=== PATIENT | female | born 1985 | race Caucasian/White ===

== ENCOUNTER 2017-03-20 21:21 | Emergency (ER) | payer OTHER ==
[~2017-03-20] VITALS: Ht 170.2 cm; Wt 65.0 kg
[2017-03-20 21:23] VITALS: BP 127/68; PULSE 68; RESP 16; TEMP 98.1; O2SAT 100
--- NOTE | 2017-03-20 22:12 | PD ---
HPI Chief Complaint: GI Complaint Time Seen by Provider: 22:07 Travel History International Travel<30 days: No Contact w/Intl Traveler<30days: No Traveled to known affect area: No History of Present Illness HPI 32-year-old female presents to the emergency department for complaint of 8/10 epigastric pain. Patient states pain is worsened by palpation and reproducible. Patient denies previous history of abdominal pain. She denies history of gastritis peptic ulcer disease pancreatitis gallstones or biliary colic. Patient denies chest pain or shortness of breath. Patient states pain does radiate into her back. Patient unable to identify exacerbating or alleviating factors. Patient states she felt well when she went to bed last evening and awakened with pain. Patient's had no fever or chills. Patient has had nausea with some bilious emesis but no hematemesis or coffee-ground emesis. Patient denies dysuria frequency or urgency. Patient denies diarrhea or constipation. Last menstrual period was normal for her and denies . Patient has history of endometriosis with previous laparoscopy as well as C- section breast augmentation and prior ectopic . Patient denies any lower abdominal pain. Patient is taking no medication for symptom relief. [facility] Past Medical History Narrative Medical Endometriosis, ectopic , laparoscopy, , breast augmentation; occasional alcohol use, marijuana use, tobacco use; nursing notes reviewed Diminished Hearing: No Medical other: Yes (breast augmentation, pre-eclampsia) Immunizations Current: Yes ?: Not Past Surgical History Section: Yes Gynecologic Surgery: Yes ( endometriosis) Social History Alcohol Use: Yes (occassional) Tobacco Use: Yes (1ppd) Substance Use: Yes (marijuana) Allergies-Medications (Allergen,Severity, Reaction): Coded Allergies: No Known Allergies (Unverified , 03/20/17) Reported Meds & Prescriptions Reported Meds & Active Scripts Active No Active Prescriptions or Reported Medications Review of Systems Except as stated in HPI: all other systems reviewed are Neg General / Constitutional: No: Fever, Chills HENT: No: Congestion Cardiovascular: No: Chest Pain or Discomfort Respiratory: No: Cough Gastrointestinal: Positive: Nausea, Vomiting, Abdominal Pain Genitourinary: No: Flank Pain Musculoskeletal: No: Myalgias, Arthralgias Skin: No Rash Neurologic: No: Weakness Psychiatric: No: Anxiety Hematologic/Lymphatic: No: Lymph Node Enlargement Physical Exam Narrative GENERAL: Well-developed well-nourished female in no acute distress no respiratory distress SKIN: Warm and dry. HEAD: Normocephalic. EYES: No scleral icterus. No injection or drainage. NECK: Supple, trachea midline. No JVD or lymphadenopathy. CARDIOVASCULAR: Regular rate and rhythm without murmurs, gallops, or rubs. RESPIRATORY: Breath sounds equal bilaterally. No accessory muscle use. GASTROINTESTINAL: Abdomen soft, reproducible epigastric pain with mild bilateral upper quadrant tenderness to direct palpation without guarding or rebound, nondistended. MUSCULOSKELETAL: No cyanosis, or edema. BACK: Nontender without obvious deformity. No CVA tenderness. Data Data Last Documented VS Vital Signs Date Time Temp Pulse Resp B/P Pulse Ox O2 Delivery O2 Flow Rate FiO2 03/20/17 21:23 98.1 68 16 127/68 100 Orders Complete Blood Count With Diff (03/20/17 22:07) Comprehensive Metabolic Panel (03/20/17 22:07) Lipase (03/20/17 22:07) Urinalysis - C+S If Indicated (03/20/17 22:07) Iv Access Insert/Monitor (03/20/17 22:07) Ecg Monitoring (03/20/17 22:07) Oximetry (03/20/17 22:07) Ondansetron Inj (Zofran Inj) (03/20/17 22:15) Pantoprazole Inj (Protonix Inj) (03/20/17 22:15) Sodium Chloride 0.9% Flush (Ns Flush) (03/20/17 22:15) Ed Urine Pregnancytest Poc (03/20/17 22:07) Sodium Chlor 0.9% 1000 Ml Inj (Ns 1000 M (03/20/17 22:15) Ct Abd/Pel W Iv Contrast(Rout) (03/20/17 ) Hydromorphone Pf Inj (Dilaudid Pf Inj) (03/20/17 23:45) Urine Culture (03/20/17 23:59) Iohexol 350 Inj (Omnipaque 350 Inj) (03/21/17 00:15) Labs Laboratory Tests Test 03/20/17 03/20/17 22:20 23:59 Sodium Level 139 MEQ/L Potassium Level 4.2 MEQ/L Chloride Level 102 MEQ/L Carbon Dioxide Level 28.1 MEQ/L Anion Gap 9 MEQ/L Blood Urea Nitrogen 11 MG/DL Creatinine 0.70 MG/DL Estimat Glomerular Filtration 96 ML/MIN Rate Random Glucose 72 MG/DL Calcium Level 9.4 MG/DL Total Bilirubin 0.6 MG/DL Aspartate Amino Transf 38 U/L (AST/SGOT) Alanine Aminotransferase 20 U/L (ALT/SGPT) Alkaline Phosphatase 77 U/L Total Protein 7.7 GM/DL Albumin 4.1 GM/DL Lipase 136 U/L White Blood Count 14.2 TH/MM3 Red Blood Count 5.20 MIL/MM3 Hemoglobin 15.6 GM/DL Hematocrit 46.8 % Mean Corpuscular Volume 90.0 FL Mean Corpuscular Hemoglobin 30.1 PG Mean Corpuscular Hemoglobin 33.4 % Concent Red Cell Distribution Width 12.7 % Platelet Count 265 TH/MM3 Mean Platelet Volume 8.8 FL Neutrophils (%) (Auto) 74.7 % Lymphocytes (%) (Auto) 18.9 % Monocytes (%) (Auto) 4.8 % Eosinophils (%) (Auto) 1.3 % Basophils (%) (Auto) 0.3 % Neutrophils # (Auto) 10.6 TH/MM3 Lymphocytes # (Auto) 2.7 TH/MM3 Monocytes # (Auto) 0.7 TH/MM3 Eosinophils # (Auto) 0.2 TH/MM3 Basophils # (Auto) 0.0 TH/MM3 CBC Comment DIFF FINAL Differential Comment Urine Color YELLOW Urine Turbidity HAZY Urine pH 6.5 Urine Specific [place] 1.032 Urine Protein 100 mg/dL Urine Glucose (UA) NEG mg/dL Urine Ketones 150 mg/dL Urine Occult Blood TRACE Urine Nitrite NEG Urine Bilirubin NEG Urine Urobilinogen 4.0 MG/DL Urine Leukocyte Esterase MOD Urine RBC 5 /hpf Urine WBC 19 /hpf Urine Squamous Epithelial 12 /hpf Cells Urine Mucus MANY /lpf Microscopic Urinalysis Comment CULTURE INDICATED MDM Medical Decision Making Medical Screen Exam Complete: Yes Emergency Medical Condition: Yes Medical Record Reviewed: Yes Interpretation(s) CBC & BMP Diagram 03/20/17 22:20 Vital Signs Date Time Temp Pulse Resp B/P Pulse Ox O2 Delivery O2 Flow Rate FiO2 03/20/17 21:23 98.1 68 16 127/[address] abd/pel: CONCLUSION: 1. Bilateral ovarian cysts. 2. Tiny 4 mm left hepatic cyst. 3. Otherwise, unremarkable examination for patient's age. Mark Linares MD on March 21, 2017 at 0:30 Board Certified Radiologist. This report was verified electronically. [id number] hCG: Negative Urinalysis: positive for leukocyte esterase and white blood cells; culture indicated Differential Diagnosis Gastritis peptic ulcer disease biliary colic pancreatitis viral syndrome; also to consider atypical chest pain Narrative Course IV access obtained specimens collected and sent for resulting patient administered Zofran 4 mg IV normal saline bolus and Protonix 40 mg IV Patient continues to complain of pain is identified to have leukocytosis of 14, 500 CT abdomen and pelvis ordered patient given dose of Dilaudid 0.5 mg IV Patient remains comfortable CT abdomen and pelvis reveals no acute intra- abdominal or pelvic abnormality other than noted to have ovarian cyst; urinalysis is abnormal with white cells and leukocytosis with culture indicated patient given oral dose of antibiotic. At 12:40 AM patient is stable for outpatient management and follow-up with her primary care provider. Patient feels well, pain resolved. Patient informed of lab results and encouraged to return to the emergency for for any concerns Diagnosis Primary Impression: Gastritis Additional Impressions: Ovarian cyst UTI (urinary tract infection) Referrals: Primary Care Physician call for appointment Patient Instructions: General Instructions Additional Instructions: Take medications as prescribed Follow-up with primary care provider Return to the emergency department for any concerns or change in condition Increase fluid hydration Recommend clear liquid diet for next 12-24 hours advance as tolerated bland/ Daina diet and regular diet Take acetaminophen as needed for fever 100.4F or greater; avoid use of ibuprofen/Advil/Motrin Med/Other Pt SpecificInfo: Prescription(s) given Scripts Ondansetron Odt (Zofran Odt)4 Mg Tab4 Mg SL Q6HR PRN (Nausea/Vomiting) #10 TAB Ref 0 Prov:Zabrina Gibson MD 03/21/17 Pantoprazole (Protonix)40 Mg Tab40 Mg PO DAILY #15 TAB Ref 0 Prov:Zabrina Gibson MD 03/21/17 Nitrofurantoin Monohydrate Macrocrystals (Macrobid)100 Mg Utk248 Mg PO BID #14 CAP Ref 0 Prov:Zabrina Gibson MD 03/21/17 Disposition: 01 DISCHARGE HOME Condition: Stable Zabrina Gibson MD March 20, 2017 22:11
[2017-03-20] MEDS ORDERED: SODIUM CHLOR 0.9% 1000 ML INJ 1,000 ML IV ONE (22:15)
[2017-03-20] MEDS ORDERED: SODIUM CHLORIDE 0.9% FLUSH 10 ML FLUSH IV FLUSH PRN (22:15)
[2017-03-20] MEDS ORDERED: ONDANSETRON HCL 4 MG/2 ML VIAL IVP ONE (22:15)
[2017-03-20] MEDS ORDERED: PANTOPRAZOLE SODIUM 40 MG VIAL IVP ONE (22:15)
[2017-03-20 22:33] LABS: AUTOMATED NEUTROPHIL # 10.6 TH/MM3 (1.8-7.7); BASOPHIL % 0.3 % (0.0-2.0); EOSINOPHIL # 0.2 TH/MM3 (0-0.4); EOSINOPHIL % 1.3 % (0.0-4.0); HEMATOCRIT 46.8 % (35.0-46.0); HEMO FLAGS DIFF FINAL; LYMPH % 18.9 % (9.0-44.0); LYMPHOCYTE # 2.7 TH/MM3 (1.0-4.8); MEAN CORPUSCULAR HEMOGLOBIN 30.1 PG (27.0-34.0); MEAN CORPUSCULAR HGB CONC 33.4 % (32.0-36.0); MONO % 4.8 % (0.0-8.0); NEUT % 74.7 % (16.0-70.0); PLATELET COUNT 265 TH/MM3 (150-450); RED CELL DISTRIBUTION WIDTH 12.7 % (11.6-17.2); WHITE BLOOD COUNT 14.2 TH/MM3 (4.0-11.0)
[2017-03-20 23:17] LABS: ALT (GPT) 20 U/L (10-53); ANION GAP 9 MEQ/L (5-15); AST (GOT) 38 U/L (15-37); BICARBONATE 28.1 MEQ/L (21.0-32.0); BLOOD UREA NITROGEN 11 MG/DL (7-18); CHLORIDE 102 MEQ/L (98-107); GLOMERULAR FILTRATION RATE 96 ML/MIN (>89); SODIUM (NA) 139 MEQ/L (136-145)
[2017-03-20 23:18] LABS: ALKALINE PHOSPHATASE 77 U/L (45-117); POTASSIUM 4.2 MEQ/L (3.5-5.1); TOTAL BILIRUBIN ADULT 0.6 MG/DL (0.2-1.0)
[2017-03-20] MEDS ORDERED: HYDROmorphone HCL PF 1 MG/ML VIAL IV PUSH ONE (23:45)
[2017-03-21 00:09] LABS: BLOOD, URINE TRACE (NEG); COMMENT (UR) CULTURE INDICATED; CULTURE IF INDICATED CULTURE INDICATED; GLUCOSE,URINE NEG (NEG); KETONE, URINE 150 mg/dL (NEG); MUCUS URINE MANY /lpf (OCC); NITRITE,URINE NEG (NEG); PH, URINE 6.5 (5.0-8.5); SQUAMOUS EPITHELIAL CELL URINE 12 /hpf (0-5); URINE COLOR YELLOW (YELLW/STRAW)
[2017-03-21] MEDS ORDERED: IOHEXOL 350 MG/ML 10 ML VIAL (for RAD DIAG) IV ONE (00:15)
--- NOTE | 2017-03-21 00:35 | RADRPT ---
EXAM DATE/TIME: 03/21/2017 00:14 [place] COMPARISON: No previous studies available for comparison. INDICATIONS : Epigastric pain with nausea and vomiting. IV CONTRAST: 70 cc Omnipaque 350 (iohexol) IV ORAL CONTRAST: No oral contrast ingested. RADIATION DOSE: 4.51 CTDIvol (mGy) MEDICAL HISTORY : Endometriosis. SURGICAL HISTORY : section. ENCOUNTER: Initial ACUITY: 1 day PAIN SCALE: 8/10 LOCATION: upper quadrant TECHNIQUE: Volumetric scanning of the abdomen and pelvis was performed. Using automated exposure control and ad justment of the mA and/or kV according to patient size, radiation dose was kept as low as reasonably achievable to obtain optimal diagnostic quality images. FINDINGS: LOWER LUNGS: The visualized lower lungs are clear. LIVER: Homogeneous density. Tiny 4 mm left hepatic cyst. There is no dilation of the biliary tree. No calc ified gallstones. SPLEEN: Normal size without lesion. PANCREAS: Within normal limits. KIDNEYS: Normal in size and shape. There is no mass, stone or hydronephrosis. ADRENAL GLANDS: Within normal limits. VASCULAR: There is no aortic aneurysm. BOWEL/MESENTERY: The stomach, small bowel, and colon demonstrate no acute abnormality. There is no free intraperitone al air or fluid. ABDOMINAL WALL: Within normal limits. RETROPERITONEUM: There is no lymphadenopathy. BLADDER: No wall thickening or mass. REPRODUCTIVE: 1.9 cm left adnexal cyst and a 2.4 cm right adnexal cyst. Most likely bilateral ovarian cysts. The ut erus is grossly unremarkable. No free fluid in the cul-de-sac. INGUINAL: There is no lymphadenopathy or hernia. MUSCULOSKELETAL: Within normal limits for patient age. CONCLUSION: 1. Bilateral ovarian cysts. 2. Tiny 4 mm left hepatic cyst. 3. Otherwise, unremarkable examination for patient's age. Mrak Linares MD on March 21, 2017 at 0:30 Board Certified Radiologist. This report was verified electronically.
[2017-03-21] MEDS ORDERED: PROT40TA PO (00:41)
[2017-03-21] MEDS ORDERED: MACR100C2 PO (00:41)
[2017-03-21] MEDS ORDERED: ZOFR4TAB3 SL (00:41)
[2017-03-21] MEDS ORDERED: NITROFURANTOIN MONOHYD MACROCR 100 MG CAP PO ONE (00:45)
== END 2017-03-21 01:01 | disposition home or self-care (01) ==
LOC: NEPC 21:21
DX: K29.70 Gastritis, unspecified, without bleeding (principal); R11.2 Nausea with vomiting, unspecified; N83.201 Unspecified ovarian cyst, right side; N83.202 Unspecified ovarian cyst, left side; N39.0 Urinary tract infection, site not specified; Z72.0 Tobacco use; F12.90 Cannabis use, unspecified, uncomplicated
CPT/HCPCS: 74177; 80053; 81001; 83690; 84703; 85025; 87086; 96361; 96374; 96375; 99284; C9113; J1170; J2405; J7030; Q9967

== ENCOUNTER 2017-12-15 15:34 | Emergency (ER) | payer OTHER ==
[~2017-12-15] VITALS: Ht 160 cm; Wt 45.0 kg
[~2017-12-15 15:34] MED LIST: MACR100C2 PO; PROT40TA PO; ZOFR4TAB3 SL
[2017-12-15 15:35] VITALS: BP 131/59; PULSE 117; RESP 20; TEMP 99.1; O2SAT 98
[2017-12-15] MEDS ORDERED: CARB6.5S5 EACH EAR (17:19)
[2017-12-15] MEDS ORDERED: AMOX875T PO (17:19)
--- NOTE | 2017-12-15 17:25 | PD ---
HPI Chief Complaint: ENT Complaint Time Seen by Provider: 17:13 Travel History International Travel<30 days: No Contact w/Intl Traveler<30days: No Traveled to known affect area: No History of Present Illness HPI 32-year-old female that presents to the ED for evaluation of inability to hear from the left ear. Patient has had this for about 3 days. Per patient is not getting better which is what prompted her evaluation today. She denies using Q- tips or any injury. Only pain is with sneezing. States they just feels "weird ". Denies any fevers chills or sweats. No congestion. Pain per patient is minimal 20/10 if any. Mainly she cannot hear. No problems with the right ear. No allergies to medication. No chest pain or shortness of breath. No other medical issues. PFSH Past Medical History Diminished Hearing: No Immunizations Current: Yes ?: Not Past Surgical History Section: Yes Gynecologic Surgery: Yes ( endometriosis) Social History Alcohol Use: Yes (occassional) Tobacco Use: Yes (1ppd) Substance Use: Yes (marijuana) Allergies-Medications (Allergen,Severity, Reaction): Coded Allergies: No Known Allergies (Unverified , 03/20/17) Reported Meds & Prescriptions Reported Meds & Active Scripts Active Debrox Otic Drops (Carbamide Peroxide Otic Drops) 6.5% Soln 5-10 Drop EACH EAR BID PRN up to 4 days. Amoxicillin 875 Mg Tab 875 Mg PO BID 10 Days Zofran Odt (Ondansetron Odt) 4 Mg Tab 4 Mg SL Q6HR PRN Protonix (Pantoprazole Sodium) 40 Mg Tab 40 Mg PO DAILY Macrobid (Nitrofurantoin Monoh/Nitrofur Macro) 100 Mg Cap 100 Mg PO BID Review of Systems Except as stated in HPI: all other systems reviewed are Neg Physical Exam Narrative GENERAL: Well-nourished, well-developed patient in no apparent distress. SKIN: Warm and dry. HEAD: Atraumatic. Normocephalic. EYES: Pupils equal and round reactive to light and accommodation. No scleral icterus. No injection or drainage. ENT: No nasal bleeding or discharge. Mucous membranes pink and moist. Right TM appears to be clear and intact. Left TM cannot be visualized secondary to significant cerumen impaction. No discharge or swelling noted. No mastoid tenderness. Ear canals are intact bilaterally. No lymphadenopathy. Nostril mucosa is red and moist with clear mucus noted. No sinus tenderness to palpation noted. Tonsils are not enlarged or swollen. No ulvua Deviation. Tongue is midline. NECK: Trachea midline. No JVD. No meningeal signs noted CARDIOVASCULAR: Regular rate and rhythm. RESPIRATORY: No accessory muscle use. Clear to auscultation. Breath sounds equal bilaterally. GASTROINTESTINAL: Abdomen soft, non-tender, nondistended. Hepatic and splenic margins not palpable. MUSCULOSKELETAL: Extremities without clubbing, cyanosis, or edema. No obvious deformities. NEUROLOGICAL: Awake and alert. No obvious cranial nerve deficits. Motor grossly within normal limits. Five out of 5 muscle strength in the arms and legs. Normal speech. PSYCHIATRIC: Appropriate mood and affect; insight and judgment normal. Data Data Last Documented VS Vital Signs Date Time Temp Pulse Resp B/P (MAP) Pulse Ox O2 Delivery O2 Flow Rate FiO2 12/15/17 15:35 99.1 117 20 131/59 (83) 98 Room Air Orders Orders Ed Discharge Order (12/15/17 17:20) MDM Medical Decision Making Medical Screen Exam Complete: Yes Emergency Medical Condition: Yes Medical Record Reviewed: Yes Differential Diagnosis Otitis media versus otitis externa versus cerumen impaction Narrative Course 32-year-old female that presents to the ED for evaluation of inability to hear from the left ear. Patient was properly examined and was found to have signs and symptoms consistent with appears to be cerumen impaction. I do recommend getting rid of the cerumen. Patient verbally consented for me to proceed with treatment plan. Using a small curet I was able to get most of the earwax removed from the patient's ear. Patient did have some abrasions and slight bleeding from the attempt but no sign of perforated eardrum. TM itself does appear to be erythematous and bulging. Likely otitis media. Patient did not get relief from removal of cerumen. Likely urinary infection as the cause of the inability to here. We'll treat with amoxicillin and Debrox. I strongly encouraged her to follow up with ENT. Good your hygiene. See ED worsening symptoms. Diagnosis Primary Impression: Otitis media Qualified Codes: H66.002 - Acute suppurative otitis media without spontaneous rupture of ear drum, left ear Additional Impression: Cerumen impaction Qualified Codes: H61.22 - Impacted cerumen, left ear Patient Instructions: General Instructions Additional Instructions: Take medications as prescribed. Apply drops twice a day as needed. Once hearing comes back you do not need to apply drops. Follow with PCP. See ED worsening symptoms. Med/Other Pt SpecificInfo: Prescription(s) given Scripts Carbamide Peroxide Otic Drops (Debrox Otic Drops) 6.5% Soln 5-10 DROP EACH EAR BID Y for Ear Wax Removal, #1 BOTTLE 0 Refills up to 4 days. Prov: Stevenson Alanis MD 12/15/17 Amoxicillin (Amoxicillin) 875 Mg Tab 875 MG PO BID for Infection for 10 Days, #20 TAB 0 Refills Prov: Stevenson Alanis MD 12/15/17 Disposition: 01 DISCHARGE HOME Condition: Stable Irving Fernández Dec 15, 2017 17:25
== END 2017-12-15 18:02 | disposition home or self-care (01) ==
LOC: NEPK 15:34
DX: H66.002 Acute suppurative otitis media without spontaneous rupture of ear drum, left ear (principal); H61.22 Impacted cerumen, left ear; F17.210 Nicotine dependence, cigarettes, uncomplicated
CPT/HCPCS: 69210; 99283